=== PATIENT | female | born 1985 | race Hispanic/Latino ===

== ENCOUNTER 2018-09-21 14:38 | Emergency (ER) | payer OTHER ==
[2018-09-21] MEDS ORDERED: ACETAMINOPHEN EXTRA STRENGTH 500 MG TABLET ONE (16:01)
[2018-09-21] MEDS ORDERED: ONDANSETRON HCL 4 MG/2 ML VIAL ONE (16:01)
[2018-09-21 16:05] LABS: BASOPHILS % (AUTO) 0.4 % (0.0-5.0); EOSINOPHILS % (AUTO) 0.3 % (0.0-8.0); HEMATOCRIT 41.3 % (36-48); LYMPHOCYTES % (AUTO) 7.4 % (21.0-51.0); MEAN CORPUSCULAR HEMOGLOBIN 27.8 pg (27.0-33.0); MEAN CORPUSCULAR HGB CONC 33.6 g/dL (32.0-36.0); MEAN CORPUSCULAR VOLUME 82.6 fL (79-99); MONOCYTES % (AUTO) 2.7 % (3.0-13.0); NEUTROPHILS % (AUTO) 89.2 % (40.0-77.0); PLATELET COUNT (AUTO) 295 K/uL (130-400); RED CELL DISTRIBUTION WIDTH 13.9 % (11.0-15.5)
[2018-09-21 16:10] LABS: APPEARANCE,URINE Clear (CLEAR); BILIRUBIN,URINE Negative (NEGATIVE); COLOR,URINE Yellow (YELLOW); GLUCOSE, URINE (UA) >=1000 mg/dL (NEGATIVE); KETONES,URINE 40 mg/dL (NEGATIVE); LEUKOCYTE ESTERASE ,URINE Negative (NEGATIVE); NITRATE,URINE Negative (NEGATIVE); OCCULT BLOOD,URINE Negative (NEGATIVE); PROTEIN,URINE Negative (NEGATIVE); UROBILINOGEN,URINE 0.2 mg/dL (0.2-1.0)
[2018-09-21 16:12] LABS: HCG,QUAL RESULT NEGATIVE (NEGATIVE)
[2018-09-21 16:19] LABS: CREATININE 0.7 mg/dL (0.5-1.5); POTASSIUM 3.7 mmol/L (3.5-5.1)
[2018-09-21 16:24] LABS: ALBUMIN 3.5 g/dL (3.5-5.0); BILIRUBIN,TOTAL 0.7 mg/dL (0.2-1.0); TOTAL PROTEIN, SERUM 7.6 g/dL (6.0-8.3)
[2018-09-21 16:26] LABS: BACTERIA,URINE Few /HPF (None Seen); RBC,URINE 0-1 /HPF (0-1); SQUAMOUS EPITHELIAL CELL,UR Moderate /HPF (0-2); WBC,URINE 0-1 /HPF (0-1)
[2018-09-21 16:27] LABS: MUCUS,URINE Rare LPF (None Seen)
== END 2018-09-21 17:09 | disposition home or self-care (01) ==
LOC: EDH 14:38
DX: K52.9 Noninfective gastroenteritis and colitis, unspecified (principal); E11.9 Type 2 diabetes mellitus without complications; Z90.49 Acquired absence of other specified parts of digestive tract
CPT/HCPCS: 36415; 80053; 81001; 81003; 81025; 85025; 87804 ×2; 96361; 96374; 99284; J2405